=== PATIENT | female | born 1960 | race Asian ===

== ENCOUNTER 2018-06-13 05:15 | Inpatient (IN) | payer BC ==
[~2018-06-13] VITALS: Ht 165.1 cm; Wt 58.7 kg
[2018-06-13 05:21] VITALS: Ht 165.1 cm; Wt 58.7 kg
[2018-06-13 06:57] LABS: FREE T4 1.26 ng/dL (0.76-1.46); FREE THYROXINE INDEX 4.1 ug/dL (1.4-4.5); T4(THYROXINE) 10.4 ug/dL (4.7-13.3)
[2018-06-13 07:02] LABS: T3 TOTAL 0.89 ng/mL
[2018-06-13 07:14] LABS: ALBUMIN 4.3 g/dL (3.4-5.0); ALKALINE PHOSPHATASE 56 U/L (46-116); ALT/SGPT 26 U/L (14-59); AST/SGOT 45 U/L (15-37); BILIRUBIN TOTAL 2.3 mg/dL (0.20-1.00); CALCIUM 10.1 mg/dL (8.5-10.1); CHLORIDE SERUM 104 mmol/L (98-107); CHOLESTEROL 174 mg/dL (<200); CREATININE SERUM 0.8 mg/dL (0.6-1.0); GFR1 > 60 mL/min; GLUCOSE SERUM 118 mg/dL (74-106); POTASSIUM SERUM 3.8 mmol/L (3.5-5.1); SODIUM SERUM 141 mmol/L (136-145); TOTAL PROTEIN, SERUM 7.6 g/dL (6.4-8.2)
[2018-06-13 07:43] LABS: PLATELET COUNT 251 x10^3mcL (130-400); RED CELL DISTRIBUTION WIDTH 12.7 % (11.5-14.5)
[2018-06-13 08:00] LABS: BAND NEUTROPHIL 1 % (0-10); BASOPHIL 0 % (0-2); MONOCYTE 10 % (0-7); SEGMENTED NEUTROPHILS 72 % (37-75)
[2018-06-13 08:01] LABS: PLATELET MORPHOLOGY PLATELETS DECREASED; rbc morphology (normal/abnorm) ABNORMAL (NORMAL)
[2018-06-13 11:16] VITALS: BP 135/73
[2018-06-13 11:22] LABS: PHOSPHOROUS 4.4 mg/dL (2.5-4.9)
[2018-06-13 17:15] VITALS: BP 139/83
[2018-06-13 21:07] VITALS: BP 120/64
[2018-06-14 05:50] VITALS: BP 126/79
[2018-06-14 06:09] LABS: BILIRUBIN DIRECT 0.23 mg/dL (0.0-0.2); BILIRUBIN TOTAL 1.1 mg/dL (0.20-1.00); TOTAL PROTEIN, SERUM 6.2 g/dL (6.4-8.2)
[2018-06-14 06:11] LABS: ALBUMIN 3.2 g/dL (3.4-5.0)
[2018-06-14 10:02] VITALS: BP 133/81
[2018-06-14] MEDS ORDERED: LOSARTAN POTASS50 M1 PO (10:46)
[2018-06-14 11:21] LABS: BASOPHIL % 0.4 % (0-2); PLATELET COUNT 207 x10^3mcL (130-400); RED CELL DISTRIBUTION WIDTH 12.7 % (11.5-14.5)
[2018-06-14 11:27] LABS: CALCIUM 8.5 mg/dL (8.5-10.1); CHLORIDE SERUM 106 mmol/L (98-107); CREATININE SERUM 0.7 mg/dL (0.6-1.0); GFR1 > 60 mL/min; GLUCOSE SERUM 95 mg/dL (74-106); POTASSIUM SERUM 3.6 mmol/L (3.5-5.1); SODIUM SERUM 140 mmol/L (136-145)
[2018-06-14 14:07] LABS: microscopic required? NO
[2018-06-14 14:16] LABS: UA SPECIFIC GRAVITY <=1.005 (1.005-1.035); urine erythrocyte NEGATIVE (NEGATIVE)
[2018-06-14 14:44] LABS: AMPHETAMINE QUAL UR NONE DETECTED (See below)
[2018-06-14 18:00] VITALS: BP 157/95
[2018-06-14 21:00] VITALS: BP 126/77
[2018-06-15 05:33] VITALS: BP 142/82
[2018-06-15 06:13] LABS: CALCIUM 9.1 mg/dL (8.5-10.1); CARBON DIOXIDE 28.3 mmol/L (21-32); CHLORIDE SERUM 105 mmol/L (98-107); CREATININE SERUM 0.7 mg/dL (0.6-1.0); GFR1 > 60 mL/min; GLUCOSE SERUM 106 mg/dL (74-106); SODIUM SERUM 143 mmol/L (136-145)
[2018-06-15 06:51] LABS: BASOPHIL % 0.4 % (0-2); PLATELET COUNT 217 x10^3mcL (130-400); RED CELL DISTRIBUTION WIDTH 12.5 % (11.5-14.5)
[2018-06-15 08:46] VITALS: BP 148/86
[2018-06-15] MEDS ORDERED: TRA50 PO (13:09)
[2018-06-15 13:30] VITALS: BP 148/86
== END 2018-06-15 14:15 | disposition home or self-care (01) | DRG 557 ==
LOC: ED 05:15 → MU 09:27
PROVIDERS: Emergency Medicine; Internal Medicine
DX: M62.82 Rhabdomyolysis (principal); G92 Toxic encephalopathy; I10 Essential (primary) hypertension; E78.00 Pure hypercholesterolemia, unspecified; E78.5 Hyperlipidemia, unspecified; R74.0 Nonspecific elevation of levels of transaminase and lactic acid dehydrogenase [LDH]; G47.00 Insomnia, unspecified; F32.9 Major depressive disorder, single episode, unspecified; K76.0 Fatty (change of) liver, not elsewhere classified; Z79.899 Other long term (current) drug therapy
CPT/HCPCS: 84439; 97110-GP; 97116-GP; J1644; J7030; Q0092